=== PATIENT | female | born 1965 | race Caucasian/White ===

== ENCOUNTER 2022-11-04 13:28 | Outpatient (AMB) | payer BC, SELFPAY ==
--- NOTE | 2022-11-04 13:29 | A.OFFPC_ITS ---
Vital Signs 11/04/22 13:30 11/04/22 14:04 Height 5 ft 3 in Weight 133 lb 8 oz BMI 23.6 BP 144/86 H 132/88 Blood Pressure Location Lt brachial Rt brachial Position Sitting Sitting Pulse 84 Pulse Source Pulse Oximeter Pulse Oximetry (%) 96 Oxygen Delivery Method Room Air Intake Visit Reasons: Physical Exam Allergies No Known Allergies Allergy (Verified 11/04/22 13:30) Medication List - Last Reconciled 11/04/22 by Cody Logan MD No Known Home Meds Tobacco use date assessed: 11/04/22 Dental Screening Dental Screen Date: 11/04/22 Did you have a dental visit in the last 12 months?: Yes Did you have a dental problem in the last 6 months where you did not have access to dental care?: No Was dental information given to patient?: No HPI Physical Exam HPI Details Patient is a 57-year-old female came in today for physical exam Lab order placed to be done fasting Patient had tibial fracture in July she is doing well now I have added vitamin- D level Blood pressure is slightly elevated today at 144/86 we will recheck it when she will return to go over labs. Mammogram order placed Patient declined to do Pap smear at this time Declined colonoscopy Tdap vaccine was administered today [facility] Family History Brother Mental health disorder Father Substance use disorder Social History Housing: House Patient Tobacco Use Status: Never used Tobacco e-Cigarette/Vaping Use: Never Used service: No Current occupational status: employed Current occupation: [employer] Current occupational exposures/hazards: No Cognitive needs: No Hearing needs: No Vision needs: Yes Questionnaire PHQ-9 Over the last 2 weeks, how often have you been bothered by any of the following problems? 1. Little interest or pleasure in doing things: not at all 2. Feeling down, depressed, or hopeless: not at all 3. Trouble falling or staying asleep, or sleeping too much: several days 4. Feeling tired or having little energy: several days 5. Poor appetite or overeating: not at all 6. Feeling bad about yourself - or that you are a failure or have let yourself or your family down: not at all 7. Trouble concentrating on things, such as reading the newspaper or watching television: not at all 8. Moving or speaking so slowly that other people could have noticed. Or the opposite - being so fidgety or restless that you have been moving around a lot more than usual: not at all 9. Thoughts that you would be better off or of hurting yourself in some way: not at all Total score: 2 Depression Screening Interpretation: Negative 30014 - PHQ-9 Billing: Yes Source: Developed by Drs. Yuan Ramírez, Thalia Ac, Jorge Wilson and colleagues, with an educational reggie from [employer]. Thrive Questionnaire Date Thrive assessed: 11/04/22 I am a: Patient What is your living situation today?: I have a steady place to live Within the past 12 months, did the food you bought not last and you didn't have the money to get more?: Never true Within the past 12 months, did you worry whether your food would run out before you got money to buy more?: Never true Do you have trouble paying for medicines?: No Do you have trouble getting transportation to medical appointments?: No Do you have trouble paying your heating and electricity bill?: No Do you have trouble taking care of your child, family member or friend?: No Do you have trouble with day-to-day activities such as bathing, preparing meals, shopping, managing finances, etc.?: No Are you currently unemployed and looking for a job?: No Are you interested in more education?: No AUDIT C Alcohol Use Questionnaire (AUDIT-C) 1. How often do you have a drink containing alcohol?: Never 3. How often do you have six or more drinks on one occasion?: Never Total Score: 0 Score Reviewed/Action Taken: Yes CELESTINO-7 AMB Questionnaire CELESTINO-7 Date CELESTINO - 7 assessed: 11/04/22 Feeling nervous, anxious, or on edge: 0 = Not at all Not being able to stop or control worryin = Not at all Worrying too much about different things: 0 = Not at all Trouble relaxin = Not at all Being so restless that it is hard to sit still: 0 = Not at all Becoming easily annoyed or irritable: 0 = Not at all Feeling afraid as if something awful might happen: 0 = Not at all Total CELESTINO-7 score (0-4 normal; 5-9 mild; 10-14 moderate; 15-21 severe): 0 Source: Developed by Drs. Yuan Ramírez, Thalia Ac, Jorge Wilson and colleagues, with an educational reggie from [employer]. CELESTINO-7 Assessment Billing CELESTINO-7 Assessment Tool: CELESTINO-7 Assessment 21889 Review of Systems Const Denies chills, Denies fever(s) and Denies headache(s) Eyes Denies blurry vision ENT Denies headache(s), Denies nasal discharge, Denies nasal obstruction, Denies odynophagia and Denies sinus pain Card Denies chest pain at rest and Denies chest pain with activity Resp Denies cough and Denies hemoptysis GI Denies diarrhea, Denies odynophagia, Denies vomiting and Denies hematemesis Reports as per HPI Musc Denies abnormal gait Skin/Breast Reports as per HPI Neuro Denies Neuro-related abnormal movements, Denies Abnormal speech present, Denies abnormal gait, Denies headache(s) and Denies Sensory deficit (Neuro) Psych Denies mood swings and Denies paranoia Endo Reports as per HPI Yohannes/Lymph Reports as per HPI Aller/Immun Reports as per HPI Physical exam (Primary Care) Vital Signs: Last Vital Signs Pulse 84 11/04/22 13:30 BP 132/88 11/04/22 14:04 Pulse Ox 96 11/04/22 13:30 Oxygen Delivery Method Room Air 11/04/22 13:30 BMI result Body Mass Index 23.6 Tobacco/Smoking Status: Tobacco use Status Tobacco use date assessed 11/04/22 11/04/22 13:31 Patient Tobacco Use Status Never used Tobacco 11/04/22 13:31 e-Cigarette/Vaping Use Never Used 11/04/22 13:31 PHQ-9: PHQ-9 Score PHQ-9: Total score 2 11/04/22 14:04 Depression Screening Interpretation: Negative Thrive Assessment: Date of Thrive Assessment Date Thrive assessed 11/04/22 11/04/22 13:50 Const General: cooperative, comfortable and no acute distress Orientation/consciousness: patient oriented x3 HENMT Head: Yes normocephalic and Yes atraumatic Eyes General: appearance normal, both eyes and all related structures Pupils: Equal, round and reactive pupils present EOM: EOMs intact bilaterally Neck Neck: Yes supple and No lymphadenopathy Thyroid: Thyroid normal Lymphatic: no lymphadenopathy noted Chest Breast/axilla palpation: normal palpation of the breasts Resp Effort & Inspection: normal respiratory effort and able to speak in complete sentences Auscultation: clear to auscultation bilaterally Cardio Heart sounds: S1 normal heart sound present and S2 normal heart sound present GI Palpation (GI): Soft to palpation and nontender Auscultation: normal bowel sounds General: Yes no CVA tenderness Back/Spine/Pelvis Back: no CVA tenderness Skin General skin exam: elasticity normal and turgor normal Neuro General: patient oriented x3 and gait normal Cranial nerves: Yes Equal, round and reactive pupils present Speech: No Abnormal speech present Sensory Exam: No Sensory deficit (Neuro) Coordination: tandem gait normal and Romberg test negative Extrem General: Yes normal exam except as noted and No edema Immunizations Boostrix Tdap Performing Provider: Cody Logan MD Administered by: Madelin Louie CMA on 11/04/22 13:55 Dose Route Admin Location Lot Number Expiration Date NDC [employer] Consult[employer] 0.5 mL IM Left Deltoid [id number] 01/14/25 33729-212-30 [employer] VIS Given Date VIS Provided VIS Publication Date 11/04/22 Single Vaccine 20 Eligibility Eligibility Date Funding Source Not [facility] Eligible 11/04/22 Private Assessment and Plan Assessment & Plan (1) Encounter for general adult medical examination with abnormal findings: Code(s): Z00.01 - Encounter for general adult medical examination with abnormal findings (2) Left tibial fracture: Code(s): S82.A - Unspecified fracture of shaft of left tibia, initial encounter for closed fracture Plan Patient is a 57-year-old female came in today for physical exam Lab order placed to be done fasting Patient had tibial fracture in July she is doing well now I have added vitamin- D level Blood pressure is slightly elevated today at 144/86 we will recheck it when she will return to go over labs. Mammogram order placed Patient declined to do Pap smear at this time Declined colonoscopy Tdap vaccine was administered today Orders: Orders Comprehensive [place]. Panel Fast Today S82.A - Unspecified fracture of shaft of left tibia, initial encounter for closed fracture, Z00.01 - Encounter for general adult medical examination with abnormal findings Lipid Panel Today S82.A - Unspecified fracture of shaft of left tibia, initial encounter for closed fracture, Z00.01 - Encounter for general adult medical examination with abnormal findings Vitamin D 25-OH (D2 and D3) Today S8.A - Unspecified fracture of shaft of left tibia, initial encounter for closed fracture, Z00.01 - Encounter for general adult medical examination with abnormal findings Complete Blood Count Auto Diff Today S8A - Unspecified fracture of shaft of left tibia, initial encounter for closed fracture, Z00.01 - Encounter for general adult medical examination with abnormal findings MM tomosynthesis screening BI Today Z12.31 - Encounter for screening mammogram for malignant neoplasm of breast TDaP Immunization Today Z23 - Encounter for immunization Coding Level of Care Code Est Pt Prev Care 40-64y(22067) Diagnoses Encounter for general adult medical examination with abnormal findings Z00.01 Left tibial fracture S8A Additional Codes CELESTINO-7 Assessment Billing - CELESTINO-7 Assessment Tool: CELESTINO-7 Assessment [id number] ([id number])
[2022-11-04 13:30] VITALS: BP 144/86; PULSE 84; O2SAT 96; BMI 23.6
[2022-11-04 14:04] VITALS: BP 132/88
== END 2022-11-04 14:44 | disposition home or self-care (01) ==
PROVIDERS: Visit Provider Internal Medicine
DX: Z00.01 Encounter for general adult medical examination with abnormal findings (principal); S82.202A Unspecified fracture of shaft of left tibia, initial encounter for closed fracture; Z23 Encounter for immunization
CPT/HCPCS: 90471; 90715; 99396

== ENCOUNTER 2022-11-05 07:13 | Outpatient (REF) | payer BC, SELFPAY ==
[2022-11-05 11:14] LABS: MANUAL DIFF FLAG NO
[2022-11-05 11:45] LABS: Basophils Percent Auto 0.7 % (0-2); Eosinophils Absolute Auto 0.1 X10*3/uL (0.0-0.4); Eosinophils Percent Auto 1.6 % (0-4); Hematocrit 44.7 % (37.0-47.0); Hemoglobin 14.8 g/dl (12.0-16.0); Imm Gran Abs Auto 0.01 X10*3/uL (0.00-0.03); Imm Gran Pct Auto 0.2 % (0.0-0.4); Lymphocytes Absolute Auto 1.5 X10*3/uL (1.2-4.9); Lymphocytes Percent Auto 26.6 % (20-40); Mean Corpuscular HGB Conc 33.1 g/dl (31.0-35.0); Mean Corpuscular Hemoglobin 31.4 pg (27.0-33.0); Mean Corpuscular Volume 94.9 fL (80.0-98.0); Mean Platelet Volume 10.9 fL (9.4-12.3); Monocytes Absolute Auto 0.4 X10*3/uL (0.1-1.2); Monocytes Percent Auto 6.9 % (2-11); Neutrophils Absolute Auto 3.7 x10*3/uL (2.0-8.3); Platelet Count 282 X10*3/uL (160-400); Red Blood Count 4.71 X10*6/uL (4.20-5.50); Red Cell Distribution Width 12.7 % (11.0-16.0); White Blood Count 5.8 X10*3/uL (4.8-10.8)
[2022-11-05 12:13] LABS: Alanine Aminotransferase 14 U/L (0-31); Albumin Level 4.6 g/dL (3.5-5.0); Alkaline Phosphatase 78 U/L (39-117); Anion Gap 15 (12-20); Aspartate Amino Transferase 19 U/L (5-31); Bilirubin Total 0.5 mg/dL (0.0-1.0); Blood Urea Nitrogen 15 mg/dL (9-16); Carbon Dioxide 25 mmol/L (22-29); Chloride 106 mmol/L (96-108); Cholesterol 317 mg/dL; Estimated Glomerular Filt Rate > 60; Glucose Fasting 86 mg/dL (60-99); HDL Cholesterol 67 mg/dL; LDL Cholesterol Calculated 224 mg/dl; Sodium 142 mmol/L (135-145); Total Protein 7.5 g/dL (6.5-8.0); Triglycerides 130 mg/dL
[2022-11-10 15:19] LABS: Vitamin D 25-OH, D2 <4 ng/mL; Vitamin D 25-OH, D3 23 ng/mL; Vitamin D 25-OH, Total 23 ng/mL (30-100)
== END 2022-11-05 07:14 | disposition home or self-care (01) ==
LOC: HO.HMGCLDS 07:13
PROVIDERS: PCP Internal Medicine; Visit Provider Internal Medicine
DX: Z00.01 Encounter for general adult medical examination with abnormal findings (principal); S82.202A Unspecified fracture of shaft of left tibia, initial encounter for closed fracture
CPT/HCPCS: 36415; 80053; 80061; 82306; 85025

== ENCOUNTER 2022-11-14 08:25 | Outpatient (AMB) | payer BC, SELFPAY ==
--- NOTE | 2022-11-14 08:30 | MHC.PC.OV ---
Vital Signs 11/14/22 08:32 Height 5 ft 3 in Weight 131 lb BMI 23.2 BP 138/72 Blood Pressure Location Rt brachial Position Sitting Pulse 94 Pulse Source Pulse Oximeter Pulse Oximetry (%) 98 Oxygen Delivery Method Room Air Intake Visit Reasons: 1 wk follow up~ BP check Allergies No Known Allergies Allergy (Verified 11/14/22 08:30) Tobacco use date assessed: 11/14/22 Dental Screening Dental Screen Date: 11/14/22 Did you have a dental visit in the last 12 months?: Yes Did you have a dental problem in the last 6 months where you did not have access to dental care?: Yes Was dental information given to patient?: Patient has dentist HPI 1 wk follow up~ BP check HPI Details Patient came in today to have her blood pressure recheck and to go over labs Blood pressure is slightly elevated from previous visit it is 138/72 However patient is monitoring it at home and it is running less than 120 systolic Patient says that whenever she comes to or doctor's office her blood pressure is high. Vitamin-D level is low patient will start taking supplement Heart LDL is 224 she has a strong family history of high lipids However do not want to take any statins she is aware of consequences of untreated high lipids. I offered her Zetia patient says that she will read on it PFSH Family History Brother Mental health disorder Father Substance use disorder Social History Housing: House Patient Tobacco Use Status: Never used Tobacco e-Cigarette/Vaping Use: Never Used service: No Current occupational status: employed Current occupation: [employer] Current occupational exposures/hazards: No Cognitive needs: No Hearing needs: No Vision needs: Yes Questionnaire Thrive Questionnaire Date Thrive assessed: 11/04/22 CELESTINO-7 AMB Questionnaire CELESTINO-7 Date CELESTINO - 7 assessed: 11/04/22 Source: Developed by Drs. Yuan Ramírez, Thalia Ac, Jorge Wilson and colleagues, with an educational reggie from [employer]. Review of Systems Const Denies chills and Denies fever(s) ENT Denies epistaxis and Denies nasal discharge Card Denies chest pain Resp Denies chest congestion, Denies cough and Denies hemoptysis GI Denies diarrhea and Denies nausea Skin/Breast Denies rash Neuro Reports no additional complaints Psych Reports no additional complaints Endo Reports no additional complaints Physical exam (Primary Care) Vital Signs: Last Vital Signs Pulse 94 11/14/22 08:32 BP 138/72 11/14/22 08:32 Pulse Ox 98 11/14/22 08:32 Oxygen Delivery Method Room Air 11/14/22 08:32 BMI result Body Mass Index 23.2 Tobacco/Smoking Status: Tobacco use Status Tobacco use date assessed 11/14/22 11/14/22 08:32 Patient Tobacco Use Status Never used Tobacco 11/14/22 08:30 e-Cigarette/Vaping Use Never Used 11/14/22 08:30 Thrive Assessment: Date of Thrive Assessment Date Thrive assessed 11/04/22 11/14/22 08:30 Const General: cooperative, comfortable and no acute distress Orientation/consciousness: patient oriented x3 HENMT Head: Yes normocephalic Eyes General: appearance normal, both eyes and all related structures Neck Neck: Yes supple Resp Effort & Inspection: normal respiratory effort, no cough and no stridor Cardio Rhythm: regular rhythm Heart sounds: S1 normal heart sound present and S2 normal heart sound present Skin General skin exam: turgor normal Neuro General: patient oriented x3, tone normal and moves all extremities Extrem Right lower extremity: no edema Left lower extremity: no edema Assessment and Plan Assessment & Plan (1) Lipid disorder: Code(s): E78.9 - Disorder of lipoprotein metabolism, unspecified (2) Vitamin D deficiency: Code(s): E55.9 - Vitamin D deficiency, unspecified Plan Patient came in today to have her blood pressure recheck and to go over labs Blood pressure is slightly elevated from previous visit it is 138/72 However patient is monitoring it at home and it is running less than 120 systolic Patient says that whenever she comes to or doctor's office her blood pressure is high. Vitamin-D level is low patient will start taking supplement Heart LDL is 224 she has a strong family history of high lipids However do not want to take any statins she is aware of consequences of untreated high lipids. I offered her Zetia patient says that she will read on it Coding Level of Care Code Est Pt Level 3 (71009) Diagnoses Lipid disorder E78.9 Vitamin D deficiency E55.9
[2022-11-14 08:32] VITALS: BP 138/72; PULSE 94; O2SAT 98; BMI 23.2
== END 2022-11-14 09:06 | disposition home or self-care (01) ==
PROVIDERS: PCP Internal Medicine; Visit Provider Internal Medicine
DX: E78.9 Disorder of lipoprotein metabolism, unspecified (principal); E55.9 Vitamin D deficiency, unspecified
CPT/HCPCS: 99213

== ENCOUNTER 2023-11-07 10:04 | Outpatient (REF) | payer BC, SELFPAY ==
[2023-11-07 11:22] LABS: MANUAL DIFF FLAG NO
[2023-11-07 11:38] LABS: Basophils Absolute Auto 0.1 X10*3/uL (0.0-0.2); Basophils Percent Auto 1.2 % (0-2); Eosinophils Absolute Auto 0.1 X10*3/uL (0.0-0.4); Hematocrit 42.4 % (37.0-47.0); Hemoglobin 14.7 g/dl (12.0-16.0); Imm Gran Abs Auto 0.01 X10*3/uL (0.00-0.03); Imm Gran Pct Auto 0.2 % (0.0-0.4); Lymphocytes Absolute Auto 1.6 X10*3/uL (1.2-4.9); Lymphocytes Percent Auto 32.1 % (20-40); Mean Corpuscular HGB Conc 34.7 g/dl (31.0-35.0); Mean Corpuscular Hemoglobin 32.9 pg (27.0-33.0); Mean Corpuscular Volume 94.9 fL (80.0-98.0); Mean Platelet Volume 10.3 fL (9.4-12.3); Monocytes Absolute Auto 0.4 X10*3/uL (0.1-1.2); Monocytes Percent Auto 8.4 % (2-11); Neutrophils Absolute Auto 2.8 x10*3/uL (2.0-8.3); Neutrophils Percent Auto 56.1 % (45-73); Platelet Count 299 X10*3/uL (160-400); Red Blood Count 4.47 X10*6/uL (4.20-5.50); Red Cell Distribution Width 12.6 % (11.0-16.0)
[2023-11-07 12:00] LABS: Alanine Aminotransferase 16 U/L (0-31); Albumin Level 4.4 g/dL (3.5-5.0); Alkaline Phosphatase 71 U/L (39-117); Anion Gap 11 (12-20); Aspartate Amino Transferase 22 U/L (5-31); Bilirubin Total 0.5 mg/dL (0.0-1.0); Blood Urea Nitrogen 15 mg/dL (9-16); Calcium 9.5 mg/dL (8.4-10.2); Carbon Dioxide 28 mmol/L (22-29); Chloride 107 mmol/L (96-108); Cholesterol 282 mg/dL (<200); Estimated Glomerular Filt Rate > 60; Glucose Fasting 91 mg/dL (60-99); HDL Cholesterol 65 mg/dL (>40); LDL Cholesterol Calculated 190 mg/dL (<100); Potassium 4.1 mmol/L (3.3-5.1); Sodium 142 mmol/L (135-145); Total Protein 7.1 g/dL (6.5-8.0); Triglycerides 138 mg/dL (<150)
[2023-11-11 15:58] LABS: Vitamin D 25-OH, D2 <4 ng/mL; Vitamin D 25-OH, D3 22 ng/mL; Vitamin D 25-OH, Total 22 ng/mL (30-100)
== END 2023-11-07 10:05 | disposition home or self-care (01) ==
LOC: HO.HMGCLDS 10:04
PROVIDERS: PCP Internal Medicine; Visit Provider Internal Medicine
DX: E78.9 Disorder of lipoprotein metabolism, unspecified (principal); E55.9 Vitamin D deficiency, unspecified
CPT/HCPCS: 36415; 80053; 80061; 82306; 85025

== ENCOUNTER 2023-11-11 14:25 | Outpatient (AMB) | payer BC, SELFPAY ==
[2023-11-11 14:34] VITALS: BP 128/84; PULSE 65; O2SAT 99; BMI 23.4
--- NOTE | 2023-11-11 14:34 | MHC.PC.OV ---
Vital Signs 11/11/23 14:34 Height 5 ft 3 in Weight 132 lb 6 oz BMI 23.4 BP 128/84 Blood Pressure Location Rt brachial Position Sitting Pulse 65 Pulse Source Pulse Oximeter Pulse Oximetry (%) 99 Oxygen Delivery Method Room Air Intake Visit Reasons: Physical Exam - see comments Allergies No Known Allergies Allergy (Verified 11/11/23 14:36) Medication List - Last Reconciled 11/11/23 by Cody Logan MD No Known Home Meds Tobacco use date assessed: 11/11/23 Dental Screening Dental Screen Date: 11/11/23 Did you have a dental visit in the last 12 months?: Yes Did you have a dental problem in the last 6 months where you did not have access to dental care?: No Was dental information given to patient?: Patient has dentist HPI Physical Exam - see comments HPI Details Patient is a 58-year-old female came for physical examination Patient is requesting referral to OBGYN close to [place] She declined to do colonoscopy Declined to do mammogram Patient have psoriasis scalp but she is maintaining with [id number] tar shampoo Lipids continued to be elevated recent labs shows LDL of 190 She continued to decline taking medication for that Other than that patient is doing well and offer no complaints She will return in 1 year for physical examination, lab order placed to be done before visit. [facility] Family History Brother Mental health disorder Father Substance use disorder Social History Housing: House Patient Tobacco Use Status: Never used Tobacco e-Cigarette/Vaping Use: Never Used service: No Current occupational status: employed Current occupation: [employer] Current occupational exposures/hazards: No Cognitive needs: No Hearing needs: No Vision needs: Yes Questionnaire PHQ-9 Over the last 2 weeks, how often have you been bothered by any of the following problems? 1. Little interest or pleasure in doing things: not at all 2. Feeling down, depressed, or hopeless: several days 3. Trouble falling or staying asleep, or sleeping too much: several days 4. Feeling tired or having little energy: several days 5. Poor appetite or overeating: not at all 6. Feeling bad about yourself - or that you are a failure or have let yourself or your family down: not at all 7. Trouble concentrating on things, such as reading the newspaper or watching television: not at all 8. Moving or speaking so slowly that other people could have noticed. Or the opposite - being so fidgety or restless that you have been moving around a lot more than usual: not at all 9. Thoughts that you would be better off or of hurting yourself in some way: not at all Total score: 3 Depression Screening Interpretation: Negative Depression Screening Done: Yes 55901 - PHQ-9 Billing: Yes Source: Developed by Drs. Yuan Ramírez, Thalia Ac, Jorge Wilson and colleagues, with an educational reggie from [employer] Thrive Questionnaire Date Thrive assessed: 11/11/23 I am a: Patient What is your living situation today?: I have a steady place to live Within the past 12 months, did the food you bought not last and you didn't have the money to get more?: Never true Within the past 12 months, did you worry whether your food would run out before you got money to buy more?: Never true Do you have trouble paying for medicines?: No Do you have trouble getting transportation to medical appointments?: No Do you have trouble paying your heating and electricity bill?: No Do you have trouble taking care of your child, family member or friend?: No Do you have trouble with day-to-day activities such as bathing, preparing meals, shopping, managing finances, etc.?: No Are you currently unemployed and looking for a job?: No Are you interested in more education?: No Please select the resources that you would like help with: None Currently or been in a relationship where the following occur: No concerns reported THRIVE Score: 0 AUDIT C Alcohol Use Questionnaire (AUDIT-C) 1. How often do you have a drink containing alcohol?: 2-4 times a month 2. How many drinks containing alcohol do you have on a typical day when you are drinking?: 1 or 2 3. How often do you have six or more drinks on one occasion?: Never Total Score: 2 Score Reviewed/Action Taken: Yes CELESTINO-7 AMB Questionnaire CELESTINO-7 Date CELESTINO - 7 assessed: 11/11/23 Feeling nervous, anxious, or on edge: 1 = Several days Not being able to stop or control worryin = Not at all Worrying too much about different things: 0 = Not at all Trouble relaxin = Several days Being so restless that it is hard to sit still: 0 = Not at all Becoming easily annoyed or irritable: 1 = Several days Feeling afraid as if something awful might happen: 0 = Not at all Total CELESTINO-7 score (0-4 normal; 5-9 mild; 10-14 moderate; 15-21 severe): 3 Source: Developed by Drs. Yuan Ramírez, Thalia Ac, Jorge Wilson and colleagues, with an educational reggie from [employer] CELESTINO-7 Assessment Billing CELESTINO-7 Assessment Tool: CELESTINO-7 Assessment 69341 Review of Systems Const Denies chills, Denies fever(s) and Denies headache(s) Eyes Denies blurry vision ENT Denies headache(s), Denies nasal discharge, Denies nasal obstruction, Denies odynophagia and Denies sinus pain Card Denies chest pain at rest and Denies chest pain with activity Resp Denies cough and Denies hemoptysis GI Denies diarrhea, Denies odynophagia, Denies vomiting and Denies hematemesis Reports as per HPI Musc Denies abnormal gait Skin/Breast Reports as per HPI Neuro Denies Neuro-related abnormal movements, Denies Abnormal speech present, Denies abnormal gait, Denies headache(s) and Denies Sensory deficit (Neuro) Psych Denies mood swings and Denies paranoia Endo Reports as per HPI Yohannes/Lymph Reports as per HPI Aller/Immun Reports as per HPI Physical exam (Primary Care) Vital Signs: Last Vital Signs Pulse 65 11/11/23 14:34 BP 128/84 11/11/23 14:34 Pulse Ox 99 11/11/23 14:34 Oxygen Delivery Method Room Air 11/11/23 14:34 BMI result Body Mass Index 23.4 Tobacco/Smoking Status: Tobacco use Status Tobacco use date assessed 11/11/23 11/11/23 14:38 Patient Tobacco Use Status Never used Tobacco 11/11/23 14:36 e-Cigarette/Vaping Use Never Used 11/11/23 14:36 PHQ-9: PHQ-9 Score PHQ-9: Total score 3 11/11/23 14:50 Depression Screening Interpretation: Negative Thrive Assessment: Date of Thrive Assessment Date Thrive assessed 11/11/23 11/11/23 14:38 Currently or been in a relationship where the following occur: No concerns reported Const General: cooperative, comfortable and no acute distress Orientation/consciousness: patient oriented x3 HENMT Head: Yes normocephalic and Yes atraumatic Eyes General: appearance normal, both eyes and all related structures Pupils: Equal, round and reactive pupils present EOM: EOMs intact bilaterally Neck Neck: Yes supple and No lymphadenopathy Thyroid: Thyroid normal Lymphatic: no lymphadenopathy noted Chest Breast/axilla palpation: normal palpation of the breasts Resp Effort & Inspection: normal respiratory effort and able to speak in complete sentences Auscultation: clear to auscultation bilaterally Cardio Heart sounds: S1 normal heart sound present and S2 normal heart sound present GI Palpation (GI): Soft to palpation and nontender Auscultation: normal bowel sounds General: Yes no CVA tenderness Back/Spine/Pelvis Back: no CVA tenderness Skin General skin exam: elasticity normal and turgor normal Neuro General: patient oriented x3 and gait normal Cranial nerves: Yes Equal, round and reactive pupils present Speech: No Abnormal speech present Sensory Exam: No Sensory deficit (Neuro) Coordination: tandem gait normal and Romberg test negative Extrem General: Yes normal exam except as noted and No edema Assessment and Plan Assessment & Plan (1) Encounter for general adult medical examination with abnormal findings: Code(s): Z00.01 - Encounter for general adult medical examination with abnormal findings (2) Lipid disorder: Code(s): E78.9 - Disorder of lipoprotein metabolism, unspecified (3) Psoriasis of scalp: Code(s): L40.9 - Psoriasis, unspecified (4) Vitamin D deficiency: Code(s): E55.9 - Vitamin D deficiency, unspecified Plan Patient is a 58-year-old female came for physical examination Patient is requesting referral to OBGYN close to [place] She declined to do colonoscopy Declined to do mammogram Patient have psoriasis scalp but she is maintaining with tabc-cut-cfzcliw tar shampoo Lipids continued to be elevated recent labs shows LDL of 190 She continued to decline taking medication for that Other than that patient is doing well and offer no complaints She will return in 1 year for physical examination, lab order placed to be done before visit. Orders: Orders Complete Blood Count Auto Diff 1 Year E55.9 - Vitamin D deficiency, unspecified, E78.9 - Disorder of lipoprotein metabolism, unspecified Comprehensive [place]. Panel Fast 1 Year E55.9 - Vitamin D deficiency, unspecified, E78.9 - Disorder of lipoprotein metabolism, unspecified Lipid Panel 1 Year E55.9 - Vitamin D deficiency, unspecified, E78.9 - Disorder of lipoprotein metabolism, unspecified Vitamin D 25-OH (D2 and D3) 1 Year E55.9 - Vitamin D deficiency, unspecified, E78.9 - Disorder of lipoprotein metabolism, unspecified Referrals [facility] [employer] Referral Z01.419 - Encounter for gynecological examination (general) (routine) without abnormal findings Coding Level of Care Code Est Pt Level 3 (84281) Est Pt Prev Care 40-64y(59822) Diagnoses Encounter for general adult medical examination with abnormal findings Z00.01 Lipid disorder E78.9 Psoriasis of scalp L40.9 Vitamin D deficiency E55.9 Additional Codes CELESTINO-7 Assessment Billing - CELESTINO-7 Assessment Tool: CELESTINO-7 Assessment [id number] ([id number])
== END 2023-11-11 14:52 | disposition home or self-care (01) ==
PROVIDERS: PCP Internal Medicine; Visit Provider Internal Medicine
DX: Z00.00 Encounter for general adult medical examination without abnormal findings (principal); E78.9 Disorder of lipoprotein metabolism, unspecified; L40.9 Psoriasis, unspecified; E55.9 Vitamin D deficiency, unspecified
CPT/HCPCS: 99396

== ENCOUNTER 2024-11-29 07:17 | Outpatient (REF) | payer BC, SELFPAY ==
[2024-11-29 10:08] LABS: MANUAL DIFF FLAG NO
[2024-11-29 10:12] LABS: Hematocrit 41.8 % (37.0-47.0); Hemoglobin 14.2 g/dl (12.0-16.0); Imm Gran Abs Auto 0.02 X10*3/uL (0.00-0.03); Imm Gran Pct Auto 0.3 % (0.0-0.4); Lymphocytes Absolute Auto 1.5 X10*3/uL (1.2-4.9); Mean Corpuscular HGB Conc 34.0 g/dl (31.0-35.0); Mean Corpuscular Hemoglobin 32.1 pg (27.0-33.0); Mean Corpuscular Volume 94.6 fL (80.0-98.0); NRBC Abs Auto 0.000 X10*3/uL (0.0-0.012); NRBC Pct Auto 0.0 /100WBC (0.0-0.2); Platelet Count 305 X10*3/uL (160-400); Red Blood Count 4.42 X10*6/uL (4.20-5.50); White Blood Count 5.8 X10*3/uL (4.8-10.8)
[2024-11-29 10:24] LABS: Alanine Aminotransferase 14 U/L (0-31); Albumin Level 4.6 g/dL (3.5-5.0); Alkaline Phosphatase 80 U/L (39-117); Anion Gap 12 (12-20); Aspartate Amino Transferase 28 U/L (5-31); Blood Urea Nitrogen 14 mg/dL (9-16); Calcium 9.5 mg/dL (8.4-10.2); Carbon Dioxide 28 mmol/L (22-29); Chloride 106 mmol/L (96-108); Cholesterol 275 mg/dL (<200); Estimated Glomerular Filt Rate > 60; HDL Cholesterol 72 mg/dL (>40); Potassium 3.7 mmol/L (3.3-5.1); Sodium 142 mmol/L (135-145); Total Protein 7.2 g/dL (6.5-8.0); Triglycerides 94 mg/dL (<150)
[2024-12-04 16:49] LABS: Vitamin D 25-OH, D2 <4 ng/mL; Vitamin D 25-OH, D3 24 ng/mL; Vitamin D 25-OH, Total 24 ng/mL (30-100)
== END 2024-11-29 07:18 | disposition home or self-care (01) ==
LOC: HO.HMGCLDS 07:17
PROVIDERS: PCP Internal Medicine; Visit Provider Internal Medicine
DX: E55.9 Vitamin D deficiency, unspecified (principal); E78.9 Disorder of lipoprotein metabolism, unspecified
CPT/HCPCS: 36415; 80053; 80061; 82306; 85025

== ENCOUNTER 2024-11-30 15:19 | Outpatient (AMB) | payer BC, SELFPAY ==
[2024-11-30 15:23] VITALS: BP 118/76; PULSE 62; RESP 18; TEMP 36.6; O2SAT 98; BMI 21.3
--- NOTE | 2024-11-30 15:23 | A.OFFPC_ITS ---
Vital Signs 11/30/24 15:23 Height 5 ft 3 in Weight 120 lb BMI 21.3 BP 118/76 Blood Pressure Location Lt brachial Position Sitting Respiration 18 Pulse 62 Pulse Source Pulse Oximeter Temp 97.9 F Temp Source Oral Pulse Oximetry (%) 98 Oxygen Delivery Method Room Air Intake Visit Reasons: annual exam Intake Note: Pt is here today for PE. Allergies No Known Allergies Allergy (Verified 11/30/24 15:24) Medication List - Last Reconciled 11/30/24 by Cody Logan MD No Known Home Meds Tobacco use date assessed: 11/30/24 Dental Screening Dental Screen Date: 11/30/24 Did you have a dental visit in the last 12 months?: Yes Did you have a dental problem in the last 6 months where you did not have access to dental care?: No Was dental information given to patient?: Patient has dentist HPI annual exam HPI Details History of Present Illness The patient is a 59-year-old female presenting for a regular follow-up appointment. Hypercholesterolemia: - The patient was previously noted to moore ve high cholesterol levels. - LDL levels were 224 in 2022, 190 last year, and have decreased to 185 recently. - She has been managing her cholesterol through a specific diet involving avoidance of fried foods and limited meat intake, along with regular exercise. - Recent labs done a day before the visi t showed improved levels, although the LDL levels are still elevated. Mild Arthritis: - The patient reports mild arthritic salazar nges, primarily in the knees. - There are no significant joint issues reported by the patient aside from this mild arthritis. - The patient maintains her joint health through regular exercises, mainly walking and low-impact weights. Medical History: - Hypercholesterolemia - Mild Arthritis Surgical History: - The patient's has had prostate surgery, but there is no surgical history provided for the patient herself. Social History: - Exercise: Engages in regular physical activity, including walking and using low weights. - Diet: Consumes limited fried foods and meat, prioritizes water intake. - Immunity: Attributes her good health p artly to a diet rich in vitamin C. Family History: - No family history of breast cancer. Health Maintenance - Recommended vitamin D3 supplementation of 1000 units daily due to low Vitamin D levels. - Patient is not up to date with OBGYN r eferrals, mammogram, or colonoscopy but has opted not to pursue these at this time. - Flu vaccine offered but declined by th e patient, citing no frequent illness and good immune health from dietary habits. Patient Instructions - Continue current diet and exercise reg imen. - Consider starting vitamin D3 1000 unit s daily. - Maintain regular self-breast exams for monitoring any changes. - Get fasting lab tests done the day bef ore the next annual check-up. Review of Systems - General: No fever no chills - Neurological: No headaches no dizzin ess - Ear nose throat: No sore throat no hearing difficulty no ear pain - Cardiovascular: No syncope, no chest pain, no palpitations - Gastrointestinal: No nausea vomiting or diarrhea - Endocrine: No polyuria polydipsia no heat intolerance - Genitourinary: No dysuria - Skin: No new complaints Physical Exam General: Cooperative, healthy appearing, comfortable, no acute distress Orientation: Patient oriented x3 Limitations: None Head: Normal to inspection Ears: Within normal limit visually Nose: Normal external nose present Face and sinus: Normal facial exam Eyes: Appearance normal, extraocular movement intact pupils reactive Neck: Normal visual inspection and supple Respiratory: Normal respiratory effort and able to speak in complete sentences. Clear to auscultation, no stridor Cardiovascular: S1 and S2 RRR Breast exam benign GI: Normal to inspection. Soft to palpation and nontender Skin: Turgor normal, no acute findings Neuro: Patient oriented x3, motor sensory intact, balance intact, tandem pass Extremities: Normal to inspection, full range of motion PFSH Surgical History Hx of tonsillectomy Family History Brother Mental health disorder Father Substance use disorder Social History Housing: House Patient Tobacco Use Status: Never used Tobacco e-Cigarette/Vaping Use: Never Used service: No Current occupational status: employed Current occupation: [employer] Current occupational exposures/hazards: No Cognitive needs: No Hearing needs: No Vision needs: Yes Questionnaire PHQ-9 Over the last 2 weeks, how often have you been bothered by any of the following problems? 1. Little interest or pleasure in doing things: not at all 2. Feeling down, depressed, or hopeless: several days 3. Trouble falling or staying asleep, or sleeping too much: several days 4. Feeling tired or having little energy: several days 5. Poor appetite or overeating: not at all 6. Feeling bad about yourself - or that you are a failure or have let yourself or your family down: not at all 7. Trouble concentrating on things, such as reading the newspaper or watching television: not at all 8. Moving or speaking so slowly that other people could have noticed. Or the opposite - being so fidgety or restless that you have been moving around a lot more than usual: not at all 9. Thoughts that you would be better off or of hurting yourself in some way: not at all Total score: 3 Depression Screening Interpretation: Negative Depression Screening Done: Yes 82204 - PHQ-9 Billing: Yes Source: Developed by Drs. Yuan Ramírez, Thalia Ac, Jorge Wilson and colleagues, with an educational reggie from [employer]. Thrive Questionnaire Date Thrive assessed: 11/30/24 I am a: Patient What is your living situation today?: I have a steady place to live Within the past 12 months, did the food you bought not last and you didn't have the money to get more?: Sometimes True Within the past 12 months, did you worry whether your food would run out before you got money to buy more?: Never true Do you have trouble paying for medicines?: No Do you have trouble getting transportation to medical appointments?: No Do you have trouble paying your heating and electricity bill?: No Do you have trouble taking care of your child, family member or friend?: No Do you have trouble with day-to-day activities such as bathing, preparing meals, shopping, managing finances, etc.?: No Are you currently unemployed and looking for a job?: No Are you interested in more education?: No THRIVE Score: 1 AUDIT C Alcohol Use Questionnaire (AUDIT-C) 1. How often do you have a drink containing alcohol?: Never 3. How often do you have six or more drinks on one occasion?: Never Total Score: 0 CELESTINO-7 AMB Questionnaire CELESTINO-7 Date CELESTINO - 7 assessed: 11/30/24 Feeling nervous, anxious, or on edge: 1 = Several days Not being able to stop or control worryin = Not at all Worrying too much about different things: 0 = Not at all Trouble relaxin = Not at all Being so restless that it is hard to sit still: 0 = Not at all Becoming easily annoyed or irritable: 1 = Several days Feeling afraid as if something awful might happen: 0 = Not at all Total CELESTINO-7 score (0-4 normal; 5-9 mild; 10-14 moderate; 15-21 severe): 2 Source: Developed by Drs. Yuan Ramírez, Thalia Ac, Jorge Wilson and colleagues, with an educational reggie from [employer]. CELESTINO-7 Assessment Billing CELESTINO-7 Assessment Tool: CELESTINO-7 Assessment 31325 Physical exam (Primary Care) Vital Signs: Last Vital Signs Temp 97.9 F 11/30/24 15:23 Pulse 62 11/30/24 15:23 Resp 18 11/30/24 15:23 BP 118/76 11/30/24 15:23 Pulse Ox 98 11/30/24 15:23 Oxygen Delivery Method Room Air 11/30/24 15:23 BMI result Body Mass Index 21.3 Tobacco/Smoking Status: Tobacco use Status Tobacco use date assessed 11/30/24 11/30/24 15:28 Patient Tobacco Use Status Never used Tobacco 11/30/24 15:28 e-Cigarette/Vaping Use Never Used 11/30/24 15:28 PHQ-9: PHQ-9 Score PHQ-9: Total score 3 11/30/24 15:52 Depression Screening Interpretation: Negative Thrive Assessment: Date of Thrive Assessment Date Thrive assessed 11/30/24 11/30/24 15:28 Coding Level of Care Code Est Pt Level 3 (49786) Est Pt Prev Care 40-64y(30717) Diagnoses Encounter for general adult medical examination with abnormal findings Z00.01 Lipid disorder E78.9 Vitamin D deficiency E55.9 Papanicolaou smear declined Z53.20 Colonoscopy refused Z53.20 Mammogram declined Z53.20 Additional Codes CELESTINO-7 Assessment Billing - CELESTINO-7 Assessment Tool: CELESTINO-7 Assessment 30380 ([id number]) PHQ-9 - 35673 - PHQ-9 Billing: Yes ([id number]) Assessment & Plan Assessment & Plan (1) Encounter for general adult medical examination with abnormal findings: Code(s): Z00.01 - Encounter for general adult medical examination with abnormal findings Category: Medical (2) Lipid disorder: Code(s): E78.9 - Disorder of lipoprotein metabolism, unspecified Category: Medical (3) Vitamin D deficiency: Code(s): E55.9 - Vitamin D deficiency, unspecified Category: Medical (4) Papanicolaou smear declined: Code(s): Z53.20 - Procedure and treatment not carried out because of patient's decision for unspecified reasons Category: Medical (5) Colonoscopy refused: Code(s): Z53.20 - Procedure and treatment not carried out because of patient's decision for unspecified reasons Category: Medical (6) Mammogram declined: Code(s): Z53.20 - Procedure and treatment not carried out because of patient's decision for unspecified reasons Category: Medical Plan History of Present Illness The patient is a 59-year-old female presenting for a regular follow-up appointment. Hypercholesterolemia: - The patient was previously noted to have high cholesterol levels. - LDL levels were 224 in 2022, 190 last year, and have decreased to 185 recently. - She has been managing her cholesterol through a specific diet involving avoidance of fried foods and limited meat intake, along with regular exercise. - Recent labs done a day before the visit showed improved levels, although the LDL levels are still elevated. Mild Arthritis: - The patient reports mild arthritic changes, primarily in the knees. - There are no significant joint issues reported by the patient aside from this mild arthritis. - The patient maintains her joint health through regular exercises, mainly walking and low-impact weights. Medical History: - Hypercholesterolemia - Mild Arthritis Surgical History: - The patient's has had prostate surgery, but there is no surgical history provided for the patient herself. Social History: - Exercise: Engages in regular physical activity, including walking and using low weights. - Diet: Consumes limited fried foods and meat, prioritizes water intake. - Immunity: Attributes her good health partly to a diet rich in vitamin C. Family History: - No family history of breast cancer. Health Maintenance - Recommended vitamin D3 supplementation of 1000 units daily due to low Vitamin D levels. - Patient is not up to date with OBGYN referrals, mammogram, or colonoscopy but has opted not to pursue these at this time. - Flu vaccine offered but declined by the patient, citing no frequent illness and good immune health from dietary habits. Patient Instructions - Continue current diet and exercise regimen. - Consider starting vitamin D3 1000 units daily. - Maintain regular self-breast exams for monitoring any changes. - Get fasting lab tests done the day before the next annual check-up. Orders: Orders Vitamin D 25-OH (D2 and D3) 1 Year E55.9 - Vitamin D deficiency, unspecified, E78.9 - Disorder of lipoprotein metabolism, unspecified, Z00.01 - Encounter for general adult medical examination with abnormal findings, Z53.20 - Procedure and treatment not carried out because of patient's decision for unspecified reasons Comprehensive [place]. Panel Fast 1 Year E55.9 - Vitamin D deficiency, unspecified, E78.9 - Disorder of lipoprotein metabolism, unspecified, Z00.01 - Encounter for general adult medical examination with abnormal findings, Z53.20 - Procedure and treatment not carried out because of patient's decision for unspecified reasons Lipid Panel 1 Year E55.9 - Vitamin D deficiency, unspecified, E78.9 - Disorder of lipoprotein metabolism, unspecified, Z00.01 - Encounter for general adult medical examination with abnormal findings, Z53.20 - Procedure and treatment not carried out because of patient's decision for unspecified reasons Complete Blood Count Auto Diff 1 Year E55.9 - Vitamin D deficiency, unspecified, E78.9 - Disorder of lipoprotein metabolism, unspecified, Z00.01 - Encounter for general adult medical examination with abnormal findings, Z53.20 - Procedure and treatment not carried out because of patient's decision for unspecified reasons
== END 2024-11-30 15:41 | disposition home or self-care (01) ==
LOC: HO.HMCC 15:19
PROVIDERS: PCP Internal Medicine; Visit Provider Internal Medicine
DX: Z00.01 Encounter for general adult medical examination with abnormal findings (principal); E55.9 Vitamin D deficiency, unspecified; E78.9 Disorder of lipoprotein metabolism, unspecified; Z53.20 Procedure and treatment not carried out because of patient's decision for unspecified reasons

== ENCOUNTER → 2024-11-30 15:19 | Outpatient (BNVA) | payer BC, SELFPAY | PROVIDERS: PCP Internal Medicine; Visit Provider Internal Medicine | DX: Z00.01 Encounter for general adult medical examination with abnormal findings (principal); M17.0 Bilateral primary osteoarthritis of knee; E78.00 Pure hypercholesterolemia, unspecified; E55.9 Vitamin D deficiency, unspecified | CPT/HCPCS: 96127 ==